=== PATIENT | female | born 1995 | race Caucasian/White ===

== ENCOUNTER 2025-06-02 18:42 | Emergency (ER) | payer OTHER, SELFPAY ==
--- NOTE | ~2025-06-02 | XR_ITS ---
CLINICAL HISTORY: shortness of breath 2 view chest x-ray Comparison: None provided Findings: Lungs are clear without acute infiltrates. No pneumothorax. Heart size normal. No acute bony abnormalities. Impression: No acute processes This document has been electronically signed by: Sam Prescott MD on 06/03/2025 00:11:42
[2025-06-02 19:27] VITALS: BP 129/93; PULSE 105; RESP 20; TEMP 36.4; O2SAT 95; BMI 27.3
--- NOTE | 2025-06-02 19:27 | ED.GENADULT ---
HPI - General Adult General Chief complaint: Dyspnea Stated complaint: SOB Time Seen by Provider: 06/02/25 22:58 Source: patient, RN notes reviewed and old records reviewed Mode of arrival: ambulatory Limitations: no limitations History of Present Illness ED Provider: Deysi LEA narrative: 30-year-old female presents for evaluation of shortness of breath The patient denies any diagnosed history of asthma. She reports she was treated for bronchitis 3 times within the last 2 months. She reports that her symptoms worsened every time she discontinues prednisone use. The patient endorses smoking both marijuana and tobacco. Denies any fevers, chills, chest pain. She reports that her symptoms are worse with exertion Related Data Previous Rx's ?Medication ?Instructions ?Recorded albuterol sulfate 90 mcg/actuation 2 inh inhalation Q4H PRN shortness 06/03/25 breath activated powder inhaler of breath or wheezing #1 ea prednisone 20 mg tablet 40 mg (2 x 20 mg) PO DAILY #10 tabs 06/03/25 Allergies Allergy/AdvReac Type Severity Reaction Status Date / Time No Known Drug Allergies Allergy Unknown NA Verified 06/02/25 19:29 Review of Systems Constitutional: Constitutional: Denies body ache(s), Denies chills, Denies fever(s) and Denies headache(s) ENT: Denies headache(s) Cardiovascular: Cardiovascular: Denies chest pain, Reports dyspnea and Reports dyspnea on exertion Respiratory: Respiratory: Reports cough, Reports dyspnea, Reports dyspnea on exertion and Reports wheezing Gastrointestinal: Gastrointestinal: Denies abdominal pain, Denies nausea and Denies vomiting Musculoskeletal: Musculoskeletal: Denies back pain Integumentary/Breasts: Skin/Breast: Denies rash Neurologic: Denies headache(s) Allergic/Immunologic: Allergic/Immunologic: Reports wheezing PMFSH Social History Social History Advance Directives: No Advance Directives Information Provided: Yes Physical Exam ED Vital Signs: Vital Signs - 24 hr 06/02/25 19:27 06/02/25 23:26 Temperature 97.5 F Pulse Rate 105 H 86 Respiratory Rate 20 20 Blood Pressure 129/93 H Pulse Oximetry 95 Oxygen Delivery Method Room Air BMI result Body Mass Index 27.3 Const General: healthy appearing, comfortable, no acute distress, alert and awake Nutritional Appearance: well nourished Orientation/consciousness: patient oriented x3 HENMT Head: Yes normocephalic and Yes atraumatic Eyes Eyelids: Yes eyelids normal Conjunctivae: conjunctivae normal Sclerae: sclerae normal Corneas: corneas normal Pupils: Equal, round and reactive pupils present EOM: EOMs intact bilaterally Neck Neck: Yes full ROM Resp Effort & Inspection: normal respiratory effort, able to speak in complete sentences and not labored Auscultation: not clear to auscultation bilaterally and wheezes (Diffuse expiratory wheeze) Cardio Rate: regular rate Rhythm: regular rhythm GI Inspection: No distended Palpation (GI): Soft to palpation, not firm, nontender, no guarding and not rigid Skin General skin exam: elasticity normal Neuro General: patient oriented x3 Cranial nerves: Yes Equal, round and reactive pupils present and Yes Bilaterally intact EOM present Cognition (Neuro): normal cognition Extrem Other: Moving all extremities well without any obvious deformities Course Course Course Narrative: Rapid medical examination performed in triage by Mariel Simmons PA-C: Patient is a 30 year old female presenting to the emergency department with a cough and difficulty breathing. Detailed physical exam and review of systems are deferred to the appliance service representative. EKG, labs. imaging, swabs ordered. Patient placed back in the waiting room pending room availability and results. Medications Administered Discontinued Medications Generic Name Dose Route Start Last Admin Trade Name Freq PRN Reason Stop Dose Admin Albuterol Sulfate 5 mg/ 0 mg 06/02/25 23:17 06/02/25 23:38 Albuterol/Ipratropium 3 ml INHALE 06/02/25 23:18 7.5 each ONCE ONE Administration Albuterol Sulfate 2.5 mg/ 0 mg 06/03/25 00:02 06/03/25 00:04 Albuterol/Ipratropium 3 ml INHALE 06/03/25 00:03 5 dose ONCE ONE Administration Medical Decision Making Medical Decision Making [facility] Narrative: 30-year-old female presents for evaluation of shortness of breath. She is quite wheezy on exam. She is slightly tachycardic to 105 but otherwise she is not hypoxic, she is not tachypneic. She is quite well appearing. Given that she still has a wheezing exam we will get a chest x-ray to evaluate for pneumonia. We will treat her with a bronchodilator Differential Diagnosis Differential Diagnoses: The differential diagnosis associated with the presentation includes Asthma exacerbation COPD Pneumonia Bronchitis Has a Admission/Observation Consideration of admission/observation: Escalation of care including admission/observation considered Lab Data MDM Lab Attestation statement: I reviewed the patient's lab results. No leukocytosis or anemia. Normal platelet count. No electrolyte abnormalities warranting intervention. 06/02/25 19:45 06/02/25 19:45 Labs: Lab Results 06/02/25 Range/Units 19:45 WBC 8.7 (4.8-10.8) X10*3/uL RBC 4.92 (4.20-5.50) X10*6/uL Hgb 14.4 (12.0-16.0) g/dl Hct 40.8 (37.0-47.0) % MCV 82.9 (80.0-98.0) fL MCH 29.3 (27.0-33.0) pg MCHC 35.3 H (31.0-35.0) g/dl RDW 13.0 (11.0-16.0) % Plt Count 284 (160-400) X10*3/uL MPV 9.1 L (9.4-12.3) fL Immature Gran % (Auto) 0.6 H (0.0-0.4) % Neut % (Auto) 46.2 (45-73) % Lymph % (Auto) 38.7 (20-40) % Delta % (Auto) 5.6 (2-11) % Eos % (Auto) 7.7 H (0-4) % Baso % (Auto) 1.2 (0-2) % Lymph # (Auto) 3.4 (1.2-4.9) X10*3/uL Delta # (Auto) 0.5 (0.1-1.2) X10*3/uL Eos # (Auto) 0.7 H (0.0-0.4) X10*3/uL Baso # (Auto) 0.1 (0.0-0.2) X10*3/uL Abs Immat Gran (auto) 0.05 H (0.00-0.03) X10*3/uL Absolute Neuts (auto) 4.0 (2.0-8.3) x10*3/uL Absolute Nucleated RBC 0.000 (0.0-0.012) X10*3/uL Nucleated RBC % (auto) 0.0 (0.0-0.2) /100WBC Sodium 140 (135-145) mmol/L Potassium 4.1 (3.3-5.1) mmol/L Chloride 106 (96-108) mmol/L Carbon Dioxide 23 (22-29) mmol/L Anion Gap 15 (12-20) BUN 10 (9-16) mg/dL Creatinine 0.65 (0.5-1.4) mg/dL Estim Creat Clear Calc 103.4 Estimated GFR > 60 Random Glucose 91 (60-115) mg/dL Calcium 9.5 (8.4-10.2) mg/dL Magnesium 2.0 (1.6-2.6) mg/dL Total Bilirubin 0.8 (0.0-1.0) mg/dL AST 25 (5-31) U/L ALT 18 (0-31) U/L Alkaline Phosphatase 77 (39-117) U/L Troponin I High Sens < 2.7 (<3.5-17.0) ng/L NT-Pro-B Natriuret Pep 51.9 (<300) pg/mL Total Protein 7.4 (6.5-8.0) g/dL Albumin 4.9 (3.5-5.0) g/dL Influenza Type A (PCR) NEGATIVE (Negative) Influenza Type B (PCR) NEGATIVE (Negative) RSV RNA Qual (PCR) NEGATIVE (Negative) SARS-CoV-2 RNA (RT-PCR) NEGATIVE (Negative) Independent Interpretation I performed an independent interpretation of an: Plain X-Ray Interpretation: No focal consolidations Radiology Impression Discussion of test interpretation with radiology: I have reviewed the radiologist's reading. Radiologist Impression: Findings: Lungs are clear without acute infiltrates. No pneumothorax. Heart size normal. No acute bony abnormalities. Impression: No acute processes This document has been electronically signed by: Sam Prescott MD on 06/03/2025 00:11:42 Discharge Plan Discharge Clinical Impression: Dyspnea on exertion Patient Disposition: Home, Self-Care Instructions: Asthma (ED) Additional Instructions: Your symptoms seem consistent with asthma or seasonal asthma. Your chest x-ray did not show any evidence of pneumonia. Take prednisone 40 mg daily for the next 5 days. Use the albuterol inhaler every 4 hours as needed for shortness of breath and wheezing. I recommend that you follow up with your primary doctor for pulmonary function testing Prescriptions: New prednisone 20 mg tablet 40 mg PO DAILY Qty: 10 0RF albuterol sulfate 90 mcg/actuation aerosol powdr breath activated 2 inh inhalation Q4H PRN (Reason: shortness of breath or wheezing) Qty: 1 0RF Print Language: French
--- NOTE | 2025-06-02 19:28 | ECG_ITS ---
Test Reason : SOB Blood Pressure : */* mmHG Vent. Rate : 109 BPM Atrial Rate : 109 BPM P-R Int : 130 ms QRS Dur : 68 ms QT Int : 330 ms P-R-T Axes : 71 75 60 degrees QTcB Int : 444 ms Sinus tachycardia Otherwise normal ECG No previous ECGs available Referred By: Mariel Simmons Electronically Signed By: VANDA PETER
[2025-06-02 19:51] LABS: MANUAL DIFF FLAG NO
[2025-06-02 19:52] LABS: Hematocrit 40.8 % (37.0-47.0); Hemoglobin 14.4 g/dl (12.0-16.0); Imm Gran Abs Auto 0.05 X10*3/uL (0.00-0.03); Imm Gran Pct Auto 0.6 % (0.0-0.4); Lymphocytes Absolute Auto 3.4 X10*3/uL (1.2-4.9); Mean Corpuscular HGB Conc 35.3 g/dl (31.0-35.0); Mean Corpuscular Hemoglobin 29.3 pg (27.0-33.0); Mean Corpuscular Volume 82.9 fL (80.0-98.0); NRBC Abs Auto 0.000 X10*3/uL (0.0-0.012); NRBC Pct Auto 0.0 /100WBC (0.0-0.2); Platelet Count 284 X10*3/uL (160-400); Red Blood Count 4.92 X10*6/uL (4.20-5.50); White Blood Count 8.7 X10*3/uL (4.8-10.8)
[2025-06-02 20:10] LABS: Alanine Aminotransferase 18 U/L (0-31); Albumin Level 4.9 g/dL (3.5-5.0); Alkaline Phosphatase 77 U/L (39-117); Anion Gap 15 (12-20); Aspartate Amino Transferase 25 U/L (5-31); Blood Urea Nitrogen 10 mg/dL (9-16); Calcium 9.5 mg/dL (8.4-10.2); Carbon Dioxide 23 mmol/L (22-29); Chloride 106 mmol/L (96-108); Creatinine Clr Calc Pharmacy 103.4; Estimated Glomerular Filt Rate > 60; Magnesium 2.0 mg/dL (1.6-2.6); Potassium 4.1 mmol/L (3.3-5.1); Sodium 140 mmol/L (135-145); Total Protein 7.4 g/dL (6.5-8.0)
[2025-06-02 20:17] LABS: NT Pro B Type Natriuretic Pept 51.9 pg/mL (<300)
[2025-06-02 20:20] LABS: Troponin-I High Sensitivity < 2.7 ng/L (<3.5-17.0)
[2025-06-02 20:30] LABS: Resp Syncy Virus RNA Qual PCR NEGATIVE (Negative); SARS COV2 PCR INHOUSE NEGATIVE (Negative)
--- OUTSIDE RECORDS SUMMARY | 2025-06-02 22:25 | XMS_ITS | Encounter Summary ---
Author Organization [facility] Address [address] [place] [address] Phone Care Team Providers Care Medical Instructor Name Role Phone Elenita Cooney DO Primary Care Provider [phone] Encounter Details Date Type Department Care Team (Late st Contact Info) Description 01/03/2011 Documentation [facility] [place] [address] [place] [address] Family Medicine, Physician [address] [place], [place] [id number] Social History Tobacco Use Types Packs/Day Years Used Date Smoking Tobacco: Never Assessed Comments Unknown Sex and Gender Information Value Date Recorded Sex Assigned at Not on file Legal Sex Female 4:53 PM EDT Gender Identity Not on file Sexual Orientation Not on file documented as of this encounter Plan of Treatment Not on file documented as of this encounter Visit Diagnoses Not on filedocumented in this encounter Care Teams Medical Instructor Relationship Specialty Start Date End Date Elenita Cooney DO [address] [facility] [place] [address] PCP - General 01/13/17 11/24/22 documented as of this encounter
--- OUTSIDE RECORDS SUMMARY | 2025-06-02 22:25 | XMS_ITS | Encounter Summary ---
Author Organization [facility] Address [address] [place] [address] Care Team Providers Care Charge Coordinator Name Role Phone Unavailable Primary Care Provider Unavailabl e Encounter Details Date Type Department Care Team (Latest Contact Info) Description 04/01/2025 Lab Requisition [facility] - Main Lab [address] [facility] [place] [address] Delia Aguilar PA [address] [place] [address] Opioid dependence, uncomplicated (CMS/HCC V24, CMS/HCC V28) Social History Tobacco Use Types Packs/Day Years Used Date Smoking Tobacco: Never Assessed Comments Unknown Sex and Gender Information Value Date Recorded Sex Assigned at Not on file Legal Sex Female 12:22 AM EDT Gender Identity Not on file Sexual Orientation Not on file documented as of this encounter Plan of Treatment Not on file documented as of this encounter Procedures Procedure Name Priority Date/Time Associated Diagnosis Comments HEPATITIS C ANTIBODY Routine 04/01/2025 8:45 AM EDT Opioid dependence, uncomplicated (CMS/HCC V24, CMS/HCC V28) HIV 1, 2 ANTIBODY, P24 ANTIGEN WITH REFLEX TO DIFFERENTIATION Routine 04/01/2025 8:45 AM EDT Opioid dependence, uncomplicated (CMS/HCC V24, CMS/HCC V28) HEPATITIS B SURFACE ANTIGEN WITH CONFIRMATION Routine 04/01/2025 8:45 AM EDT Opioid dependence, uncomplicated (CMS/HCC V24, CMS/HCC V28) TREPONEMA PALLIDUM ANTIBODY WITH REFLEX TO RPR AND PARTICLE AGGLUTINATION Routine 04/01/2025 8:45 AM EDT Opioid dependence, uncomplicated (CMS/HCC V24, CMS/HCC V28) RED - PLAIN Routine 04/01/2025 8:45 AM EDT Opioid dependence, uncomplicated (CMS/HCC V24, CMS/HCC V28) HEPATITIS B CORE ANTIBODY, TOTAL Routine 04/01/2025 8:45 AM EDT Opioid dependence, uncomplicated (CMS/HCC V24, CMS/HCC V28) HEPATITIS B SURFACE ANTIBODY Routine 04/01/2025 8:45 AM EDT Opioid dependence, uncomplicated (CMS/HCC V24, CMS/HCC V28) COMPLETE BLOOD COUNT Routine 04/01/2025 8:45 AM EDT Opioid dependence, uncomplicated (CMS/HCC V24, CMS/HCC V28) COMPREHENSIVE METABOLIC PANEL Routine 04/01/2025 8:45 AM EDT Opioid dependence, uncomplicated (CMS/HCC V24, CMS/HCC V28) documented in this encounter Results * Red tube (04/01/2025 8:45 AM EDT) Pathologist [facility] Extra Tube Hold for add-ons. 04/01/2025 4:01 PM EDT [facility] Comment:Auto resulted. Blood Venous blood specimen / Unknown 04/01/2025 8:45 AM EDT 04/01/2025 2:04 PM EDT us eDlia STEPHEN LAB BLOOD ORDERABLES Final Resu lt [facility] [address] [place] [address], * Hepatitis B core antibody, total (04/01/2025 8:45 AM EDT) Pathologist [facility] Hep B Core Total Ab Negative Negative LAB CHEMISTRY METHOD 04/01/2025 7:11 PM EDT [facility] Blood Venous blood specimen / Unknown 04/01/2025 8:45 AM EDT 04/01/2025 2:04 PM EDT [email or web address] [place] LAB BLOOD ORDERABLES Final Resu lt Performing Organization Address [facility]/ZIP Co de Phone Number [facility] [address] [place] [address], [place] [phone] * HIV 1,2 antibody, p24 antigen with reflex to differentiation (04/01/2025 8:45 AM EDT) HIV Combo AB/AG Negative Negative LAB CHEMISTRY METHOD 04/01/2025 7:11 PM EDT [facility] Blood Venous blood specimen / Unknown 04/01/2025 8:45 AM EDT 04/01/2025 2:04 PM EDT Narrative [facility] - 04/01/2025 7:11 PM EDT This assay is a 4th generation assay allowing for earlier detection of HIV infection by detecting the presence of the HIV-1 p24 antigen as well as the traditional antibodies to HIV type 1 (including group O) and type 2. Use of a 4th generation assay is the current CDC recommendation for HIV screening. [email or web address] [facility] LAB BLOOD ORDERABLES Final Resu lt Performing Organization Address [facility] de Phone Number [facility] [address] [place] [address], [place] [phone] * Treponema pallidum antibody with reflex to RPR and particle agglutination (04/01/2025 8:45 AM EDT) T. Pallidum Antibodies Negative Negative LAB CHEMISTRY METHOD 04/01/2025 5:33 PM EDT [facility] Blood Venous blood specimen / Unknown 04/01/2025 8:45 AM EDT 04/01/2025 2:04 PM EDT Delia STEPHEN LAB BLOOD ORDERABLES Final Resu lt Performing Organization Address [facility]/ZIP Co de Phone Number [facility] [address] [place] [address], [place] [phone] * Hepatitis C antibody (04/01/2025 8:45 AM EDT) Hepatitis C Antibody Negative Negative LAB CHEMISTRY METHOD 04/01/2025 7:10 PM EDT [facility] Blood Venous blood specimen / Unknown 04/01/2025 8:45 AM EDT 04/01/2025 2:04 PM EDT Delia STEPHEN LAB BLOOD ORDERABLES Final Resu lt Performing Organization Address [facility] de Phone Number [facility] [address] [place] [address], [place] [phone] * Hepatitis B surface antigen with reflex to confirmation (04/01/2025 8:45 AM EDT) Pathologist [facility] Hepatitis B Surface Ag Negative Negative LAB CHEMISTRY METHOD 04/01/2025 5:34 PM EDT [facility] Blood Venous blood specimen / Unknown 04/01/2025 8:45 AM EDT 04/01/2025 2:04 PM EDT Narrative [facility] - 04/01/2025 5:34 PM EDT Over the counter supplements containing high doses of biotin may interfere with this assay. If interference is suspected, patients shoud be retested after refraining from biotin supplements for 72 hours. Delia STEPHEN LAB BLOOD ORDERABLES Final Resu lt Performing Organization Address [facility] Co de Phone Number [facility] [address] [place] [address], [place] [phone] * Hepatitis B surface antibody (04/01/2025 8:45 AM EDT) Hepatitis B Surface Ab Negative Negative LAB CHEMISTRY METHOD 04/01/2025 5:23 PM EDT [facility] Hepatitis B Surface Ab Quantitative <3.1 mIU/mL LAB CHEMISTRY METHOD 04/01/2025 5:23 PM [facility] Blood Venous blood specimen / Unknown 04/01/2025 8:45 AM EDT 04/01/2025 2:04 PM EDT Narrative [facility] - 04/01/2025 5:23 PM EDT >=10 mIU/mL is considered to be consistent with immunity. us Delia STEPHEN LAB BLOOD ORDERABLES Final Resu lt [facility] [address] [place] [address], * (ABNORMAL) Comprehensive metabolic panel (04/01/2025 8:45 AM EDT) Sodium 137 133 - 145 mmol/L LAB CHEMISTRY METHOD 04/01/2025 4:34 PM [facility] Potassium 4.5 3.5 - 5.5 mmol/L LAB CHEMISTRY METHOD 04/01/2025 4:34 PM [facility] Chloride 105 96 - 110 mmol/L LAB CHEMISTRY METHOD 04/01/2025 4:34 PM [facility] CO2 28 21 - 32 mmol/L LAB CHEMISTRY METHOD 04/01/2025 4:34 PM [facility] Anion Gap 4 3 - 11 LAB CHEMISTRY METHOD 04/01/2025 4:34 PM [facility] Glucose 111(H) 70 - 100 mg/dL LAB CHEMISTRY METHOD 04/01/2025 4:34 PM [facility] BUN 10 5 - 25 mg/dL LAB CHEMISTRY METHOD 04/01/2025 4:34 PM [facility] Creatinine 0.80 0.50 - 1.10 mg/dL LAB CHEMISTRY METHOD 04/01/2025 4:34 PM [facility] eGFR 101 >=60 mL/min/1. 73m2 LAB CHEMISTRY METHOD 04/01/2025 4:34 PM [facility] Comment:Calculation based on the Chronic Kidney Disease Epidemiology Collaboration (CKD-EPI) equation refit without adjustment for race. BUN/Creatinine Ratio 12.5 LAB CHEMISTRY METHOD 04/01/2025 4:34 PM [facility] Calcium 9.6 8.5 - 10.5 mg/dL LAB CHEMISTRY METHOD 04/01/2025 4:34 PM [facility] AST (SGOT) 13 10 - 42 unit/L LAB CHEMISTRY METHOD 04/01/2025 4:34 PM [facility] ALT (SGPT) 21 10 - 60 unit/L LAB CHEMISTRY METHOD 04/01/2025 4:34 PM [facility] Alkaline Phosphatase 70 42 - 121 unit/L LAB CHEMISTRY METHOD 04/01/2025 4:34 PM [facility] Total Protein 7.6 6.0 - 8.0 g/dL LAB CHEMISTRY METHOD 04/01/2025 4:34 PM [facility] Albumin 4.4 3.2 - 5.0 g/dL LAB CHEMISTRY METHOD 04/01/2025 4:34 PM [facility] Total Bilirubin 0.5 0.0 - 1.4 mg/dL LAB CHEMISTRY METHOD 04/01/2025 4:34 PM [facility] Blood Venous blood specimen / Unknown 04/01/2025 8:45 AM EDT 04/01/2025 2:04 PM EDT us Delia STEPHEN LAB BLOOD ORDERABLES Final Resu lt [facility] [address], [place] [address] [phone] * (ABNORMAL) Complete blood count (04/01/2025 8:45 AM EDT) [facility] WBC 7.0 4.8 - 10.8 K/mcL LAB HEMETOLOGY [facility] RBC 5.30(H) 3.80 - 4.80 M/mcL LAB HEMETOLOGY METHOD 04/01/2025 2:07 PM EDT [facility] Hemoglobin 15.7 11.5 - 16.0 g/dL LAB HEMETOLOGY METHOD 04/01/2025 2:07 PM [facility] Hematocrit 45.0 35.0 - 47.0 % LAB HEMETOLOGY METHOD 04/01/2025 2:07 PM [facility] MCV 84.3 79.0 - 98.0 FL LAB HEMETOLOGY METHOD 04/01/2025 2:[facility] MCH 29.4 27.0 - 32.0 pcg LAB HEMETOLOGY METHOD 04/01/2025 2:07 PM [facility] MCHC 34.9 32.0 - 37.0 g/dL LAB HEMETOLOGY METHOD 04/01/2025 2:07 PM [facility] RDW 12.3 11.0 - 15.0 % LAB HEMETOLOGY METHOD 04/01/2025 2:07 PM [facility] Platelets 365 130 - 400 K/mcL LAB HEMETOLOGY METHOD 04/01/2025 2:07 PM [facility] MPV 10.1 7.0 - 11.0 FL LAB HEMETOLOGY METHOD 04/01/2025 2:07 PM [facility] NRBC 0.0 <1.0 % LAB HEMETOLOGY METHOD 04/01/2025 2:07 [facility] NRBC Absolute 0.00 <0.10 K/mcL LAB HEMETOLOGY METHOD 04/01/2025 2:07 PM EDT [facility] Blood Venous blood specimen / Unknown 04/01/2025 8:45 AM EDT 04/01/2025 2:04 PM EDT us Delia STEPHEN LAB BLOOD ORDERABLES Final Resu lt [facility] [address] [place] [address], documented in this encounter Visit Diagnoses Diagnosis Opioid dependence, uncomplicated (CMS/HCC V24, CMS/HCC V28) documented in this encounter
--- OUTSIDE RECORDS SUMMARY | 2025-06-02 22:25 | XMS_ITS | Encounter Summary ---
Author Organization [facility] Address [address] [place] [address] Phone Care Team Providers Care Correctional Cook Name Role Phone Elenita Cooney DO Primary Care Provider [phone] Encounter Details Date Type Department Care Team (Late st Contact Info) Description 01/19/2017 Conversion Encounter [facility] [place] [address] [place] [address] Social History Tobacco Use Types Packs/Day Years Used Date Smoking Tobacco: Never Comments:Never smoker Comments Unknown Sex and Gender Information Value Date Recorded Sex Assigned at Not on file Legal Sex Female 4:53 PM EDT Gender Identity Not on file Sexual Orientation Not on file documented as of this encounter Plan of Treatment Not on file documented as of this encounter Visit Diagnoses Not on filedocumented in this encounter Care Teams Correctional Cook Relationship Specialty Start Date End Date Elenita Cooney DO [address] [place] [address] PCP - General 01/13/17 11/24/22 documented as of this encounter
--- OUTSIDE RECORDS SUMMARY | 2025-06-02 22:25 | XMS_ITS | Encounter Summary ---
Author Organization [facility] Address [address] [place] [address] Phone Care Team Providers Care Wheel Inspector Name Role Phone Eleinta Cooney DO Primary Care Provider [phone] Encounter Details Date Type Department Care Team (Late st Contact Info) Description 02/17/2011 [place] [facility] [place] [address] [place] [address] Family Medicine, Physician [address] [place], [place] [phone] Social History Tobacco Use Types Packs/Day Years [...] on filedocumented in this encounter Care Teams Wheel Inspector Relationship Specialty Start Date End Date Elenita Cooney DO [address] [facility] [place] [address] PCP - General 01/13/17 11/24/22 documented as of this encounter
--- OUTSIDE RECORDS SUMMARY | 2025-06-02 22:25 | XMS_ITS | Encounter Summary ---
Author Organization [facility] Address [address] [place] [address] Phone Care Team Providers Care Reservations Manager Name Role Phone Elenita Cooney DO Primary Care Provider [phone] Encounter Details Date Type Department Care Team (Late st Contact Info) Description 06/26/2012 [place] [facility] [place] [address] [place] [address] Family Medicine, Physician [address] [place], [place] [phone] Social History Tobacco Use Types Packs/Day Years [...] on filedocumented in this encounter Care Teams Reservations Manager Relationship Specialty Start Date End Date Elenita Cooney DO [address] [facility] [place] [address] PCP - General 01/13/17 11/24/22 documented as of this encounter
--- OUTSIDE RECORDS SUMMARY | 2025-06-02 22:25 | XMS_ITS | Clinical Summary ---
Author Organization [facility] Address [address] [place] [address] Phone Care Team Providers Care Sas Developer Analyst Name Role Phone Unavailable Primary Care Provider Unavailabl e Immunizations Immunization Administration Dates Next Due DTP 1993, 4,1993,03/22 DTaP 5 11/14/1997 HPV, Quadrivalent 10/12/2009,03/24/2009,01/17/20 09 Hep B, ped/adol 01/20/1994,1993,1993 Hib (PRP-T) 1993,1993,1993 IPV 11/14/1997, 4,1993,03/22 MMR 11/14/1997,1993 Meningococcal Conj (Menactra) MCV4P 01/16/2008 Td (adult) (MBL), 2 Lf tetan us toxoid, PF, adsorbed 01/21/2005 Tdap 01/16/2009 Varicella 07/23/1997 Family History Relation Name Status Comments Brother Alive Brother: Alive and well Father Alive Father: Alive a nd well Mother Alive Mother: Alive a nd well Social History Tobacco Use Types Packs/Day Years Used Date Smoking Tobacco: Never Comments:Never smoker Comments Unknown Sex and Gender Information Value Date Recorded Sex Assigned at Not on file Legal Sex Female 4:53 PM EDT Gender Identity Not on file Sexual Orientation Not on file Last Filed Vital Signs Vital Sign Reading Time Taken Comments Blood Pressure 120/80 07/25/2012 12:00 AM EST Pulse 66 07/21/2011 12:00 AM EST Temperature 36.7 C (98 F) 07/25/2012 12:00 AM EST Respiratory Rate - - Oxygen Saturation - - Inhaled Oxygen Concentration - - Weight 53.1 kg (117 lb) 07/25/2012 12:00 AM EST Height 156.2 cm (5' 1.5 ) 06/22/2012 12:00 AM ES T Body Mass Index 21.75 06/22/2012 12:00 AM EST Plan of Treatment Health Maintenance Due Date Last Done Comments Varicella Vaccines (2 of 2 - 2-dose childhood series) 12/12/1997 07/23/1997 DTaP,Tdap,and Td Vaccines (6 - Td or Tdap) 01/16/2019 01/16/2009, 01/21/2005, 11/14/1997, Additional history exists Influenza Vaccines (#1) 2025 COVID-19 Vaccine (2024- season) 2025 HIB Vaccines Aged Out 1993, 05/05, 1993 No longer eligible based on patient's age to complete this topic Hepatitis B Vaccines Completed 01/20/1994, 1993, 1993 IPV Vaccines Completed 11/14/1997, 07/06, 1993, Additional history exists MMR Vaccines Completed 11/14/1997, 1993 Meningococcal Vaccine Aged Out 01/16/2008 No maryam melissa eligible based on patient's age to complete this topic HPV Vaccines Completed 10/12/2009, 03/06, 01/16/2009 Hepatitis A Vaccines Aged Out No long er eligible based on patient's age to complete this topic Men B Vaccine Aged Out No longer elig ible based on patient's age to complete this topic Pneumococcal Vaccine Aged Out No long er eligible based on patient's age to complete this topic Procedures * Due to [place] Inform Direct law, this organization might not be sharing sensitive test results. Procedure Name Priority Date/Time Associated Diagnosis Comments CHLAMYDIA AND GONORRHEA, AMPLIFIED Routine 04/06/2012 2:26 PM EDT from Last 3 Months or Most Recently Relevant to Health Maintenance Results * Due to [place] Inform Direct law, this organization might not be sharing sensitive test results. * Chlamydia and Gonorrhoea, Amplified (04/06/2012 2:26 PM EDT) URINE CHLAMYDIA AMP PROBE NEGATIVE [facility] Comment: NO CHLAMYDIA TRACHOMATIS RNA DETECTED IN THIS PATIENT'S SAMPLE. (REFERENCE RANGE/NORMAL VALUE: NOT DETECTED) URINE GC AMP PROBE NEGATIVE [facility] Comment: NO NEISSERIA GONORRHOEAE RNA DETECTED IN THIS PATIENT'S SAMPLE. (REFERENCE RANGE/NORMAL VALUE: NOT DETECTED) NOTE: THIS TEST USES NUCLEAR POWERPLANT SUPERVISOR MEDIATED AMPLIFICATION METHOD TO DETECT rRNA FROM C.TRACHOMATIS AND N.GONORRHOEAE. A NEGATIVE RESULT DOES NOT PRECLUDE INFECTION WITH C.TRACHOMATIS OR N.GONORRHOEAE BECAUSE RESULTS ARE DEPENDENT ON ADEQUATE SPECIMEN COLLECTION, ABSENCE OF INHIBITORS, AND SUFFICIENT rRNA TO BE DETECTED. THE APTIMA COMBO2 ASSAY IS NOT INTENDED FOR THE EVALUATION OF SUSPECTED SEXUAL ABUSE OR FOR OTHER MEDICO LEGAL INDICATIONS. IS TRUE FOR ALL NON CULTURE METHODS, A POSITIVE SPECIMEN OBTAINED FROM A PATIENT AFTER THERAPEUTIC TREATMENT CANNOT BE INTERPRETED INDICATING THE PRESENCE OF VIABLE C.TRACHOMATIS OR N.GONORRHOEAE. THERAPEUTIC FAILURE OR SUCCESS CANNOT BE DETERMINED WITH THE APTIMA COMBO2 ASSAY SINCE NUCLEIC ACID MAY PERSIST FOLLOWING APPROPRIATE ANTIMICROBIAL THERAPY. A NEGATIVE URINE RESULT FOR A PATIENT WHO IS CLINICALLY SUSPECTED OF HAVING A CHLAMYDIAL OR GONOCOCCAL INFECTION DOES NOT RULE OUT THE PRESENCE OF C.TRACHOMATIS OR N.GONORRHOEAE IN THE UROGENITAL TRACT. TESTING OF AN ENDOCERVICAL(FEMALE) OR URETHRAL(MALE) SPECIMEN IS RECOMMENDED IF THERE IS HIGH CLINICAL SUSPICION OF INFECTION. PRESERVCYT LIQUID PAP AND URINE SAMPLING ARE NOT DESIGNED TO REPLACE CERVICAL EXAMS AND ENDOCERVICAL SAMPLES FOR DIAGNOSIS OF FEMALE UROGENITAL INFECTIONS. PATIENTS MAY HAVE CERVICITIS, URETHRITIS, URINARY TRACT INFECTIONS, OR VAGINAL INFECTIONS DUE TO OTHER CAUSES OR CONCURRENT INFECTIONS WITH OTHER AGENTS. 04/06/2012 2:26 PM EDT Narrative [facility] - 04/06/2012 2:26 PM EDT URINE CHLAMYDIA GC AMP PROBE us Elenita Cooney DO LAB MICROBIOLOGY - GENERAL ORDER SEJAL Final Result [facility] [address] [place] [address], [place] from Last 3 Months or Most Recently Relevant to Health Maintenance
--- OUTSIDE RECORDS SUMMARY | 2025-06-02 22:25 | XMS_ITS | Clinical Summary ---
Author Organization [facility] Address [address] [place] [address] Phone Care Team Providers Care Porcelain Waxer Name Role Phone Jose De Jesus Coleman MD Primary Care Provider Jose De Jesus Coleman MD Unavailable Social History Tobacco Use Types Packs/Day Years Used Date Smoking Tobacco: Never Assessed Comments Unknown Sex and Gender Information Value Date Recorded Sex Assigned at Not on file Legal Sex Female 7:15 PM EDT Gender Identity Not on file Sexual Orientation Not on file Plan of Treatment Not on file Care Teams Porcelain Waxer Relationship Specialty Start Date End Date Jose De Jesus Coleman MD [address] [place] [address] PCP - General 10/22/07 Jose De Jesus Coleman MD [address] [place] [address] PCP - Insurance PCP 10/22/07
--- OUTSIDE RECORDS SUMMARY | 2025-06-02 22:25 | XMS_ITS | Encounter Summary ---
Author Organization [facility] Address [address] [place] [address] Phone Care Team Providers Care Concrete Form Setter Name Role Phone Elenita Cooney DO Primary Care Provider [phone] Encounter Details Date Type Department Care Team (Late st Contact Info) Description 02/17/2011 Documentation [facility] [place] Family Medicine [address] [place] [address] Family Medicine, Physician [address] [place], [place] [phone] Social History Tobacco Use Types Packs/Day Years [...] on filedocumented in this encounter Care Teams Concrete Form Setter Relationship Specialty Start Date End Date Elenita Cooney DO [address] [place] [address] PCP - General 01/13/17 11/24/22 documented as of this encounter
--- OUTSIDE RECORDS SUMMARY | 2025-06-02 22:25 | XMS_ITS | Encounter Summary ---
Author Organization [facility] Address [address] [place] [address] Phone Care Team Providers Care Aircraft Delivery Checker Name Role Phone Elenita Cooney DO Primary Care Provider [phone] Encounter Details Date Type Department Care Team (Late st Contact Info) Description 04/06/2012 Documentation [facility] [place] [address] [place] [address] Family Medicine, Physician [address] [place], [place] [phone] Social History Tobacco Use Types Packs/Day Years [...] on filedocumented in this encounter Care Teams Aircraft Delivery Checker Relationship Specialty Start Date End Date Elenita Cooney DO [address] [place] [address] PCP - General 01/13/17 11/24/22 documented as of this encounter
--- OUTSIDE RECORDS SUMMARY | 2025-06-02 22:25 | XMS_ITS | Encounter Summary ---
Author Organization [facility] Address [address] [place] [address] Phone Care Team Providers Care Varying Exceptionalities Teacher Name Role Phone Elenita Cooney DO Primary Care Provider [phone] Encounter Details Date Type Department Care Team (Late st Contact Info) Description 11/14/2011 Documentation [facility] [place] [address] [place] [address] Family Medicine, Physician [address] [place], [place] [phone] Social History Tobacco Use Types Packs/Day Years [...] on filedocumented in this encounter Care Teams Varying Exceptionalities Teacher Relationship Specialty Start Date End Date Elenita Cooney DO [address] [facility] [place] [address] PCP - General 01/13/17 11/24/22 documented as of this encounter
--- OUTSIDE RECORDS SUMMARY | 2025-06-02 22:25 | XMS_ITS | Encounter Summary ---
Author Organization [facility] Address [address] [place] [address] Phone Care Team Providers Care Cell Liner Name Role Phone Elenita Cooney DO Primary Care Provider [phone] Encounter Details Date Type Department Care Team (Late st Contact Info) Description 10/26/2011 Documentation [facility] [place] Family Medicine [address] [place] [address] Family Medicine, Physician [address] [place], [place] [phone] Social History Tobacco Use Types Packs/Day Years [...] on filedocumented in this encounter Care Teams Cell Liner Relationship Specialty Start Date End Date Elenita Cooney DO [address] [facility] [place] [address] PCP - General 01/13/17 11/24/22 documented as of this encounter
--- OUTSIDE RECORDS SUMMARY | 2025-06-02 22:25 | XMS_ITS | Encounter Summary ---
Author Organization [facility] Address [address] [place] [address] Phone Care Team Providers Care Supervisor Scouring Pads Name Role Phone Elenita Cooney DO Primary Care Provider [phone] Encounter Details Date Type Department Care Team (Late st Contact Info) Description 12/31/2010 Documentation [facility] [place] Family Medicine [address] [place] [address] Family Medicine, Physician [address] [place], [place] [phone] Social History Tobacco Use Types Packs/Day Years [...] on filedocumented in this encounter Care Teams Supervisor Scouring Pads Relationship Specialty Start Date End Date Elenita Cooney DO [address] [facility] [place] [address] PCP - General 01/13/17 11/24/22 documented as of this encounter
--- OUTSIDE RECORDS SUMMARY | 2025-06-02 22:25 | XMS_ITS | Encounter Summary ---
Author Organization [facility] Address [address] [place] [address] Phone Care Team Providers Care Sales Service Technician Name Role Phone Elenita Cooney DO Primary Care Provider [phone] Encounter Details Date Type Department Care Team (Late st Contact Info) Description 02/17/2011 Documentation [facility] [place] [address] [place] [address] Family Medicine, Physician [address] [place], [place] [phone] Social History Tobacco Use Types Packs/Day Years [...] on filedocumented in this encounter Care Teams Sales Service Technician Relationship Specialty Start Date End Date Elenita Cooney DO [address] [facility] [place] [address] PCP - General 01/13/17 11/24/22 documented as of this encounter
--- OUTSIDE RECORDS SUMMARY | 2025-06-02 22:25 | XMS_ITS | Encounter Summary ---
Author Organization [facility] Address [address] [place] [address] Phone Care Team Providers Care Belt And Link Assembly Supervisor Name Role Phone Elenita Cooney DO Primary Care Provider [phone] Encounter Details Date Type Department Care Team (Late st Contact Info) Description 01/11/2012 Documentation [facility] [place] [address] [place] [address] Family Medicine, Physician [address] [place], [place] [phone] Social History Tobacco Use Types Packs/Day Years [...] on filedocumented in this encounter Care Teams Belt And Link Assembly Supervisor Relationship Specialty Start Date End Date Elenita Cooney DO [address] [facility] [place] [address] PCP - General 01/13/17 11/24/22 documented as of this encounter
--- OUTSIDE RECORDS SUMMARY | 2025-06-02 22:25 | XMS_ITS | Clinical Summary ---
Author Organization [address] [facility] Address [address] [place] [address] Phone Care Team Providers Care Risk Management Consultant Name Role Phone Unavailable Primary Care Provider Unavailabl e Encounters Date Type Department Care Team Description 04/01/2025 Lab Requisition [facility] Lab [address] [facility] [place] [address] Delia Aguilar PA Opioid dependence, uncomplicated (CMS/HCC V24, CMS/HCC V28) from Last 3 Months Social History Tobacco Use Types Packs/Day Years Used Date Smoking Tobacco: Never Assessed Comments Unknown Sex and Gender Information Value Date Recorded Sex Assigned at Not on file Legal Sex Female 12:22 AM EDT Gender Identity Not on file Sexual Orientation Not on file Plan of Treatment Health Maintenance Due Date Last Done Comments DTaP,Tdap,and Td Vaccines (1 - Tdap) 01/15/2012 Hepatitis A Vaccines (1 of 2 - Risk 2-dose series) 01/15/2012 Hepatitis B Vaccines (1 of 3 - 19+ 3-dose series) 01/15/2012 Cervical Cancer Screening: P ap Smear 2014 HPV Vaccines (1 - 3-dose SCD M series) 01/15/2020 Depression Screening 06/05/2024 Social Influencers of Health Screening 01/25/2025 COVID-19 Vaccine ( - 2024-2 6 season) 2025 Influenza Vaccine (#1) 2025 RSV Immunization Adult Patie nts (1 - 1-dose 75+ series) 01/15/2068 HIV Screening Completed 04/01/2025 Hepatitis C Screening Completed 04/01/2025 HIB Vaccines Aged Out No longer eligi ble based on patient's age to complete this topic IPV Vaccines Aged Out No longer eligi ble based on patient's age to complete this topic MMR Vaccines Aged Out No longer eligi ble based on patient's age to complete this topic Meningococcal ACWY Vaccine Aged Out N o longer eligible based on patient's age to complete this topic Meningococcal B Vaccine Aged Out No l onger eligible based on patient's age to complete this topic Pneumococcal Vaccine: Pediat rics (0 to 5 Years) and At-Risk Patients (6 to 49 Years) Aged Out No longer eligi ble based on patient's age to complete this topic RSV Immunization Patients Un cielo 20 months Aged Out No longer eligible b ased on patient's age to complete this topic Varicella Vaccines Aged Out No longer eligible based on patient's age to complete this topic Procedures Procedure Name Priority Date/Time Associated Diagnosis Comments RED - PLAIN Routine 04/01/2025 8:45 AM [...] dependence, uncomplicated (CMS/HCC V24, CMS/HCC V28) HEPATITIS C ANTIBODY Routine 04/01/2025 8:45 AM [...] Opioid dependence, uncomplicated (CMS/HCC V24, CMS/HCC V28) from Last 3 Months Results * Hepatitis C antibody (04/01/2025 8:45 AM EDT) Hepatitis C Antibody Negative Negative LAB CHEMISTRY METHOD 04/01/2025 7:10 PM EDT [facility] Blood Venous blood specimen / Unknown 04/01/2025 8:45 AM EDT 04/01/2025 2:04 PM EDT Delia STEPHEN LAB BLOOD ORDERABLES Final Resu lt Performing Organization Address [facility]/ZIP Co de Phone Number [facility] [address] [place] [address], * HIV 1,2 antibody, p24 antigen with reflex to differentiation (04/01/2025 8:45 AM EDT) Pathologist [facility] HIV Combo AB/AG Negative Negative LAB CHEMISTRY METHOD 04/01/2025 7:11 PM EDT [facility] Blood Venous blood specimen / Unknown 04/01/2025 8:45 AM EDT 04/01/2025 2:04 PM EDT Narrative [facility] - 04/01/2025 7:11 PM EDT This assay is a 4th generation assay allowing for earlier detection of HIV infection by detecting the presence of the HIV-1 p24 antigen as well as the traditional antibodies to HIV type 1 (including group O) and type 2. Use of a 4th generation assay is the current CDC recommendation for HIV screening. Delia sabrina DE LAB BLOOD ORDERABLES Final Resu lt Performing Organization Address [facility]/ZIP Co de Phone Number [facility] [address] [place] [address], [place] [phone] * Hepatitis B surface antigen with reflex to confirmation (04/01/2025 8:45 AM EDT) Pathologist [facility] Hepatitis B Surface Ag Negative Negative LAB CHEMISTRY METHOD 04/01/2025 5:34 PM EDT [facility] Blood Venous blood specimen / Unknown 04/01/2025 8:45 AM EDT 04/01/2025 2:04 PM EDT Narrative [facility] - 04/01/2025 5:34 PM EDT Over the counter supplements containing high doses of biotin may interfere with this assay. If interference is suspected, patients shoud be retested after refraining from biotin supplements for [address] [facility] Agu[facility] DE LAB BLOOD ORDERABLES Final Resu lt Performing Organization Address City/[facility]/ZIP Co de Phone Number [facility] [address] [place] [address], [place] [phone] * Treponema pallidum antibody with reflex to RPR and particle agglutination (04/01/2025 8:45 AM EDT) [facility] T. Pallidum Antibodies Negative Negative LAB CHEMISTRY METHOD 04/01/2025 5:33 PM EDT [facility] Blood Venous blood specimen / Unknown 04/01/2025 8:45 AM EDT 04/01/2025 2:04 PM EDT [facility] LAB BLOOD ORDERABLES Final Resu lt [facility] [address] [place] [address], [place] [phone] * Red tube (04/01/2025 8:45 AM EDT) [facility] Extra Tube Hold for add-ons. 04/01/2025 4:01 PM EDT [facility] Comment:Auto resulted. Blood Venous blood specimen / Unknown 04/01/2025 8:45 AM EDT 04/01/2025 2:04 PM EDT [facility] LAB BLOOD ORDERABLES Final Resu lt Performing Organization Address [facility]/ZIP Co de Phone Number [facility] [address] [place] [address], * Hepatitis B core antibody, total (04/01/2025 8:45 AM EDT) Hep B Core Total Ab Negative Negative LAB CHEMISTRY METHOD 04/01/2025 7:11 PM EDT [facility] Blood Venous blood specimen / Unknown 04/01/2025 8:45 AM EDT 04/01/2025 2:04 PM EDT [facility] LAB BLOOD ORDERABLES Final Resu lt Performing Organization Address [facility] Co de Phone Number [facility] [address] [place] [address], [place] [phone] * Hepatitis B surface antibody (04/01/2025 8:45 AM EDT) Hepatitis B Surface Ab Negative Negative LAB CHEMISTRY METHOD 04/01/2025 5:23 PM EDT [facility] Hepatitis B Surface Ab Quantitative <3.1 mIU/mL LAB CHEMISTRY METHOD 04/01/2025 5:23 PM EDT [facility] Blood Venous blood specimen / Unknown 04/01/2025 8:45 AM EDT 04/01/2025 2:04 PM EDT Narrative [facility] - 04/01/2025 5:23 PM EDT >=10 mIU/mL is considered to be consistent with immunity. [facility] LAB BLOOD ORDERABLES Final Resu lt [facility] [address] [place] [address], * (ABNORMAL) Complete blood count (04/01/2025 8:45 AM EDT) [facility] Signature WBC 7.0 4.8 - 10.8 K/mcL LAB HEMETOLOGY METHOD 04/01/2025 2:07 PM EDT [facility] RBC 5.30(H) 3.80 - 4.80 M/mcL LAB HEMETOLOGY METHOD 04/01/2025 2:07 PM EDT [facility] Hemoglobin 15.7 11.5 - 16.0 g/dL LAB HEMETOLOGY METHOD 04/01/2025 2:07 PM EDT [facility] Hematocrit 45.0 35.0 - 47.0 % LAB HEMETOLOGY METHOD 04/01/2025 2:07 PM EDT [facility] MCV 84.3 79.0 - 98.0 FL LAB HEMETOLOGY METHOD 04/01/2025 2:07 PM EDT [facility] MCH 29.4 27.0 - 32.0 pcg LAB HEMETOLOGY METHOD 04/01/2025 2:07 PM EDT [facility] MCHC 34.9 32.0 - 37.0 g/dL LAB HEMETOLOGY METHOD 04/01/2025 2:07 PM EDT [facility] RDW 12.3 11.0 - 15.0 % LAB HEMETOLOGY METHOD 04/01/2025 2:07 PM EDT [facility] Platelets 365 130 - 400 K/mcL LAB HEMETOLOGY METHOD 04/01/2025 2:07 PM EDT [facility] MPV 10.1 7.0 - 11.0 FL LAB HEMETOLOGY METHOD 04/01/2025 2:07 PM EDT [facility] NRBC 0.0 <1.0 % LAB HEMETOLOGY METHOD 04/01/2025 2:07 PM EDT [facility] NRBC Absolute 0.00 <0.10 K/mcL LAB HEMETOLOGY METHOD 04/01/2025 2:07 PM EDT [facility] Blood Venous blood specimen / Unknown 04/01/2025 8:45 AM EDT 04/01/2025 2:04 PM EDT us Delia STEPHEN LAB BLOOD ORDERABLES Final Resu lt [facility] [address] [place] [address], * (ABNORMAL) Comprehensive metabolic panel (04/01/2025 8:45 AM EDT) Sodium 137 133 - 145 mmol/L LAB CHEMISTRY METHOD 04/01/2025 4:34 PM [facility] Potassium 4.5 3.5 - 5.5 mmol/L LAB CHEMISTRY METHOD 04/01/2025 4:34 PM [facility] Chloride 105 96 - 110 mmol/L LAB CHEMISTRY METHOD 04/01/2025 4:34 PM [facility] CO2 28 21 - 32 mmol/L LAB CHEMISTRY METHOD 04/01/2025 4:34 PM [facility] Anion Gap 4 3 - 11 LAB CHEMISTRY METHOD 04/01/2025 4:34 PM [facility] Glucose 111(H) 70 - 100 mg/dL LAB CHEMISTRY METHOD 04/01/2025 4:34 PM [facility] BUN 10 5 - 25 mg/dL LAB CHEMISTRY METHOD 04/01/2025 4:34 PM [facility] Creatinine 0.80 0.50 - 1.10 mg/dL LAB CHEMISTRY METHOD 04/01/2025 4:34 PM [facility] eGFR 101 >=60 mL/min/1. 73m2 LAB CHEMISTRY METHOD 04/01/2025 4:34 PM [facility] Comment:Calculation based on the Chronic Kidney Disease Epidemiology Collaboration (CKD-EPI) equation refit without adjustment for race. BUN/Creatinine Ratio 12.5 LAB CHEMISTRY METHOD 04/01/2025 4:34 PM [facility] Calcium 9.6 8.5 - 10.5 mg/dL LAB CHEMISTRY METHOD 04/01/2025 4:34 PM [facility] AST (SGOT) 13 10 - 42 unit/L LAB CHEMISTRY METHOD 04/01/2025 4:34 PM [facility] ALT (SGPT) 21 10 - 60 unit/L LAB CHEMISTRY METHOD 04/01/2025 4:34 PM [facility] Alkaline Phosphatase 70 42 - 121 unit/L LAB CHEMISTRY METHOD 04/01/2025 4:34 PM [facility] Total Protein 7.6 6.0 - 8.0 g/dL LAB CHEMISTRY METHOD 04/01/2025 4:34 PM [facility] Albumin 4.4 3.2 - 5.0 g/dL LAB CHEMISTRY METHOD 04/01/2025 4:34 PM [facility] Total Bilirubin 0.5 0.0 - 1.4 mg/dL LAB CHEMISTRY METHOD 04/01/2025 4:34 PM [facility] Blood Venous blood specimen / Unknown 04/01/2025 8:45 AM EDT 04/01/2025 2:04 PM EDT us Delia STEPHNE LAB BLOOD ORDERABLES Final Resu lt [facility] [address] [place] [address], from Last 3 Months Insurance [facility]
[2025-06-02 23:26] VITALS: PULSE 86; RESP 20; O2SAT 97
[2025-06-02] MEDS: Albuterol Sulfate 5 MG, Albuterol/Iprat 2.5/0.5MG 3 ML 3 ML INHALE (23:38)
[2025-06-03] MEDS: Albuterol Sulfate 2.5 MG, Albuterol/Iprat 2.5/0.5MG 3 ML 3 ML INHALE (00:04)
== END 2025-06-03 01:00 | disposition home or self-care (01) ==
PROVIDERS: Physician Assistant Medical; Emergency Provider Emergency Medicine
DX: R06.02 Shortness of breath (principal); F12.90 Cannabis use, unspecified, uncomplicated; F17.210 Nicotine dependence, cigarettes, uncomplicated; Z03.818 Encounter for observation for suspected exposure to other biological agents ruled out
CPT/HCPCS: 71046; 80053; 83735; 83880; 84484; 85025; 87637; 93005; 94640; 99285

== ENCOUNTER → 2025-06-02 19:28 | Outpatient (BNV) | payer OTHER, SELFPAY | PROVIDERS: Emergency Provider Emergency Medicine; Visit Provider Internal Medicine | DX: R00.0 Tachycardia, unspecified (principal) | CPT/HCPCS: 93010 ==

== ENCOUNTER → 2025-06-02 23:11 | Outpatient (BNV) | payer OTHER, SELFPAY | PROVIDERS: Emergency Provider Emergency Medicine; Visit Provider Radiology Diagnostic Radiology | DX: R06.02 Shortness of breath (principal) | CPT/HCPCS: 71046 ==